=== PATIENT | male | born 1965 | race Caucasian/White ===

== ENCOUNTER 2019-12-26 23:38 | Emergency (ER) | payer BC ==
[2019-12-27] MEDS ORDERED: Sodium Chloride 0.9% 1000 ML 1,000 ML IV SCH (00:15)
--- NOTE | 2019-12-27 00:15 | ERPHSYRPT ---
- History of Present Illness Time Seen by Provider: 12/26/19 23:51 Source: patient, family () Exam Limitations: no limitations Physician History: Reportedly pt had an injury at home 5 days ago where he was found at the bottom of stairs, flown to [facility] and found to have a scalp laceration, 2 skull fractures, subdural hematoma and SAH. Pt was discharged from [facility] today and has had irritability, agitation and fever of 101.5 degrees since. Chest pain, shortness of air, vomiting all denied. Pt states he has had an intermittent occipital headache since yesterday with episodes lasting up to 2 minutes and severity up to 3/10. Allergies/Adverse Reactions: No Known Drug Allergies Allergy (Unverified 09/16/12 13:20) Home Medications: No Home Meds [No Home Meds] 09/16/12 [History] Hx Tetanus, Diphtheria Vaccination/Date Given: No Hx Influenza Vaccination/Date Given: Yes Hx Pneumococcal Vaccination/Date Given: No - Review of Systems Constitutional: Fever Respiratory: No Dyspnea Cardiac: No Chest Pain Abdominal/Gastrointestinal: No Vomiting Neurological: Headache, Irritability, Other (agitation) All Other Systems: Reviewed and Negative - Past Medical History Pertinent Past Medical History: Yes Musculoskeletal History: Other (chronic intermittant pain right shoulder) - Past Surgical History Past Surgical History: No - Social History Smoking Status: Never smoker How long have you smoked: 10 Exposure to second hand smoke: No Alcohol Use: Socially Drug Use: none Patient Lives Alone: No Significant Family History: no pertinent family hx - Nursing Vital Signs Nursing Vital Signs: Initial Vital Signs Temperature 99.7 F 12/26/19 23:39 Pulse Rate 70 12/26/19 23:39 Respiratory Rate 16 12/26/19 23:39 Blood Pressure 146/63 12/26/19 23:39 O2 Sat by Pulse Oximetry 98 12/26/19 23:39 Pain Scale Pain Intensity 4 - [place] Coma Scale Best Eye Response (Vitor): (4) open spontaneously Best Verbal Response (Vitor): (4) confused conversation Best Motor Response (Vitor): (6) obeys commands [place] Total: 14 - Physical Exam General Appearance: alert Eye Exam: bilateral eye: PERRL, EOMI Ears, Nose, Throat Exam: TMs normal, pharyngeal erythema (mild) Neck Exam: normal inspection Respiratory: lungs clear Cardiovascular: normal heart sounds Gastrointestinal: soft, normal bowel sounds Back Exam: normal inspection Extremity Exam: normal range of motion, No pedal edema Peripheral Pulses: dorsalis-pedis (R): 2+, dorsalis-pedis (L): 2+ Mental Status: alert, cooperative, agitated personal care aid Exam: normal hearing, normal speech, PERRL Motor/Sensory: no motor deficit, no sensory deficit Skin Exam: warm, dry SpO2 Interpretation: normal SpO2: 98 O2 Delivery: Room Air - Course Nursing assessment & vital signs reviewed: Yes - Radiology Exams Chest X-ray Interpretation: Interpreted by me, No Pneumonia - CT Exams Head CT Interpretation: Tele-radiologist Report (Multifocal intracranial hemorrhage producing local sulcal effacement and effacement of the left lateral ventricle. There is effacement of the right side of the 4th ventricle as well. Recent nondisplaced right-sided occipital bone fracture extending to the foramen magnum.) Ordered Tests: Active Orders 24 hr Category Date Time Status IV Insertion STAT Care 12/27/19 00:08 Active CHEST 1 VIEW (PORTABLE) Stat Exams 12/27/19 00:06 Taken HEAD WITHOUT CONTRAST [CT] Stat Exams 12/27/19 00:08 Taken AMYLASE Stat Lab 12/27/19 00:16 Completed BLOOD CULTURE Stat Lab 12/27/19 00:58 Received CBC W DIFF Stat Lab 12/27/19 00:16 Completed CMP Stat Lab 12/27/19 00:16 Completed LIPASE Stat Lab 12/27/19 00:16 Completed Manual Differential NC Stat Lab 12/27/19 00:16 Completed [place] Screen Stat Lab 12/27/19 00:16 Completed UA W/RFX UR CULTURE Stat Lab 12/27/19 00:06 Ordered Medication Summary Generic Name Dose Route Start Last Admin Trade Name Freq PRN Reason Stop Dose Admin Sodium Chloride 1,000 mls @ 100 mls/hr 12/27/19 00:15 12/27/19 00:52 Sodium Chloride 0.9% 1000 Ml IV 01/26/20 00:14 100 mls/hr .Q10H GABBY Administration Discontinued Medications Generic Name Dose Route Start Last Admin Trade Name Freq PRN Reason Stop Dose Admin Clindamycin HCl/Dextrose 600 mg in 50 mls @ 100 mls/hr 12/27/19 00:24 11/08/ 20 00:53 Clindamycin-D5w 600 Mg/50 Ml IV 12/27/19 00:53 100 mls/hr STAT STA 100 mls/hr Administration Clindamycin HCl/Dextrose Confirm 12/27/19 00:46 Clindamycin-D5w 600 Mg/50 Ml Administered 12/27/19 00:47 Dose 600 mg in 50 mls @ ud IV .STK-MED ONE Lab/Rad Data: Laboratory Result Diagrams 12/27/19 00:16 12/27/19 00:16 Laboratory Results 12/27/19 12/27/19 12/27/19 Range/Units 00:17 00:16 00:16 WBC (4.0-10.5) K/mm3 RBC (4.1-5.6) M/mm3 Hgb (12.5-18.0) gm/dl Hct (42-50) % MCV (78-100) fl MCH (26-32) pg MCHC (32-36) g/dl RDW (11.5-14.0) % Plt Count (150-450) K/mm3 MPV (7.5-11.0) fl Segmented Neutrophils (36.-66.) % Band Neutrophils (0.0-2.0) % Lymphocytes (Manual) (24-44) % Monocytes (Manual) (0.0-12.0) % Platelet Estimate (NORMAL) RBC Morphology Sodium (137-145) mmol/L Potassium (3.5-5.1) mmol/L Chloride (98-107) mmol/L Carbon Dioxide (22-30) mmol/L Anion Gap (5-15) MEQ/L BUN (9-20) mg/dL Creatinine (0.66-1.25) mg/dL Estimated GFR ML/MIN Glucose (74-106) mg/dL Calcium (8.4-10.2) mg/dL Total Bilirubin (0.2-1.3) mg/dL AST (17-59) U/L ALT (0-50) U/L Alkaline Phosphatase (38-126) U/L Ammonia < 9 L (9-30) umol/L Serum Total Protein (6.3-8.2) g/dL Albumin (3.5-5.0) g/dL Amylase (30-110) U/L Lipase (23-300) U/L Monoscreen NEGATIVE (Negative) Group A Strep Antibody NOT DETECTED (NEGATIVE) 12/27/19 12/27/19 Range/Units 00:16 00:16 WBC 7.6 (4.0-10.5) K/mm3 RBC 3.67 L (4.1-5.6) M/mm3 Hgb 11.8 L (12.5-18.0) gm/dl Hct 35.0 L (42-50) % MCV 95.4 (78-100) fl MCH 32.2 H (26-32) pg MCHC 33.7 (32-36) g/dl RDW 12.0 (11.5-14.0) % Plt Count 178 (150-450) K/mm3 MPV 9.5 (7.5-11.0) fl Segmented Neutrophils 84 H (36.-66.) % Band Neutrophils 5 H (0.0-2.0) % Lymphocytes (Manual) 6 L (24-44) % Monocytes (Manual) 5 (0.0-12.0) % Platelet Estimate NORMAL (NORMAL) RBC Morphology NORMAL Sodium 129 L (137-145) mmol/L Potassium 4.4 (3.5-5.1) mmol/L Chloride 94 L (98-107) mmol/L Carbon Dioxide 27 (22-30) mmol/L Anion Gap 12.5 (5-15) MEQ/L BUN 16 (9-20) mg/dL Creatinine 1.03 (0.66-1.25) mg/dL Estimated GFR > 60.0 ML/MIN Glucose 123 H (74-106) mg/dL Calcium 9.2 (8.4-10.2) mg/dL Total Bilirubin 1.00 (0.2-1.3) mg/dL AST 30 (17-59) U/L ALT 25 (0-50) U/L Alkaline Phosphatase 62 (38-126) U/L Ammonia (9-30) umol/L Serum Total Protein 7.4 (6.3-8.2) g/dL Albumin 4.1 (3.5-5.0) g/dL Amylase 84 (30-110) U/L Lipase 22 L (23-300) U/L Monoscreen (Negative) Group A Strep Antibody (NEGATIVE) - Progress Progress: unchanged Discussed with : Other (Spoke with Dr. Mcgraw(trauma)([id number]) who recommended pt be transfered to [facility] ER. Spoke with Dr. Hoskins(ER Dr.)([id number]) who accepted pt for transfer to [facility] ER.) Counseled pt/family regarding: lab results, rad results - Departure Departure Disposition: Transfer ([facility] ER.) Clinical Impression: multifocal intracranial hemorrhage, Fever Condition: Stable Critical Care Time: Yes Critical Care Time(excluding separately billable procedures): Critical 30-74 mins Referrals: SUHAIL UPTON MD [Primary Care Provider] -
[2019-12-27] MEDS ORDERED: CLINDAMYCIN-D5W 600 MG/50 ML*** 600 MG/50 ML BAG IV STA (00:24)
[2019-12-27 00:27] LABS: Hemoglobin 11.8 gm/dl (12.5-18.0); Mean Cell Volume 95.4 fl (78-100); Mean Corpuscular Hemoglobin 32.2 pg (26-32); Mean Corpuscular Hgb Concent. 33.7 g/dl (32-36); Mean Platelet Volume 9.5 fl (7.5-11.0); Platelet Count 178 K/mm3 (150-450); Red Blood Count 3.67 M/mm3 (4.1-5.6); White Blood Count 7.6 K/mm3 (4.0-10.5)
[2019-12-27 00:33] LABS: ALBUMIN 4.1 g/dL (3.5-5.0); ALKALINE PHOSPHATASE 62 U/L (38-126); AMYLASE 84 U/L (30-110); ANION GAP 12.5 MEQ/L (5-15); BLOOD UREA NITROGEN 16 mg/dL (9-20); CHLORIDE 94 mmol/L (98-107); Calcium 9.2 mg/dL (8.4-10.2); Carbon Dioxide 27 mmol/L (22-30); Creatinine 1 1.03 mg/dL (0.66-1.25); EST GLOMERULAR FILTRATION RATE > 60.0 ML/MIN; Glucose 123 mg/dL (74-106); LIPASE 22 U/L (23-300); Potassium 4.4 mmol/L (3.5-5.1); SGOT/AST 30 U/L (17-59); SGPT/ALT 25 U/L (0-50); SODIUM 129 mmol/L (137-145); Total Protein 7.4 g/dL (6.3-8.2)
[2019-12-27 00:34] VITALS: O2SAT 98
[2019-12-27] MEDS ORDERED: Sodium Chloride 0.9% 1000 ML 1,000 ML ONE (00:45)
[2019-12-27] MEDS ORDERED: CLINDAMYCIN-D5W 600 MG/50 ML*** 600 MG/50 ML BAG IV ONE (00:46)
[2019-12-27 01:23] LABS: BAND 5 % (0.0-2.0); Lymphocytes 6 % (24-44); Monocyte 5 % (0.0-12.0); Neutrophils 84 % (36.-66.); Platelet Estimate NORMAL (NORMAL); Total Cells Counted 100
[2019-12-27 02:17] VITALS: BP 148/63; PULSE 84
[2019-12-27] MEDS ORDERED: Ativan 2 MG/1 ML VIAL IV ONE (02:38)
[2019-12-27] MEDS ORDERED: Ativan 2 MG/1 ML VIAL ONE (02:40)
[2019-12-27] MEDS ORDERED: ROCEPHIN 1 Gm-D5w 50 ml Bag** 1 G/50 ML IVPB IV STA (02:58)
[2019-12-27] MEDS ORDERED: ROCEPHIN 1 Gm-D5w 50 ml Bag** 1 G/50 ML IVPB IV ONE (02:59)
[2019-12-27] MEDS ORDERED: FEVERALL 325 MG ONE (02:59)
[2019-12-27] MEDS ORDERED: Zovirax INJ*** 500 MG in D5w 100ML Mini Bag 100 ML 100 ML IV ONE (02:59)
[2019-12-27] MEDS ORDERED: ZOVIRAX IV ONE ×2 (03:00→03:06)
[2019-12-27] MEDS ORDERED: D5W MINI IV ONE ×2 (03:00→03:06)
[2019-12-27] MEDS ORDERED: FEVERALL 325 MG PR STA (03:00)
[2019-12-27] MEDS ORDERED: D5w 100ML Mini Bag 100 ML 100 ML IV ONE (03:03)
[2019-12-27 03:28] LABS: Appearance CLEAR (CLEAR); Bacteria NONE SEEN /HPF (NEGATIVE); Bilirubin NEGATIVE (NEGATIVE); Blood NEGATIVE Ery/ul (0-5); Glucose NEGATIVE (NEGATIVE); Ketones SMALL (NEGATIVE); Leukocyte Esterase NEGATIVE (NEGATIVE); Nitrite NEGATIVE (NEGATIVE); Protein,Urine Dip 30 (Negative); Specific Gravity 1.024 (1.005-1.025); Urobilinogen 4 mg/dL (0-1); WBC 0-2 /HPF (0-5)
--- NOTE | 2019-12-27 07:12 | XRAY ---
Indication: Fever. Comparison: None Portable chest limited as left costophrenic angle not completely included. Remaining heart, lungs, and bony thorax are normal.
--- NOTE | 2019-12-27 07:29 | XRAY ---
Indication: Fever and altered mental status. Recent head injury with bleed and discharge from [facility]. Multiple contiguous axial images obtained through the head without contrast. Comparison: None Frontal lobes demonstrates small patchy peripheral parenchymal acute to subacute hematomas left greater than right. Largest hematoma is on the left measuring 1.6 x 1.7 x 1.8 cm. Similar peripheral parenchymal hematomas seen right cerebellum. Tiny acute subdural hematomas seen of the left temporal and left posterior parietal lobe, largest thickness 7 mm in left temporal lobe. There is mild edema with minimal effacement of the left lateral and fourth ventricles. No midline shift seen. Fourth ventricle is midline without hydrocephalus. Bone windows reveal nondepressed right occipital fracture with small overlying scalp hematoma and cutaneous serjio. Visualized paranasal sinuses and mastoid air cells are clear. Impression: 1. Multifocal intracranial hemorrhages as detailed with minimal effacement of the left lateral and fourth ventricles. No midline shifting. Comparison to outside studies recommended. 2. Nondepressed right occipital fracture with overlying scalp hematoma. Comment: Preliminary interpretation was made by [facility]. No critical discrepancy.
== END 2019-12-27 03:30 ==
LOC: ED 23:38
DX: S06.300D Unspecified focal traumatic brain injury without loss of consciousness, subsequent encounter (principal); R45.1 Restlessness and agitation; R45.4 Irritability and anger; R51.9 Headache, unspecified; M25.511 Pain in right shoulder
CPT/HCPCS: 36000; 36415; 70450; 71045; 80053; 81001; 82140; 82150; 83690; 85025; 86308; 87040; 87077; 87186; 87651; 96365; 96374; 99285; 99291; J0133; J0696; J2060; A9270-GY